=== PATIENT | male | born 1995 | race Caucasian/White ===

== ENCOUNTER 2017-06-15 09:35 | Emergency (ER) | payer OTHER ==
--- NOTE | 2017-06-15 10:28 | XRAY ---
Indication: Facial bruising/laceration following tire inflation injury. Multiple contiguous axial images obtained through the facial bones. Sagittal and coronal reformatted images obtained. Comparison: None Moderate left periorbital subcutaneous emphysema with smaller focus in the left jaw. No acute fracture, suspicious bony lesions, or radiopaque foreign body. Orbital globes are bilaterally symmetric. Orbits including roof, estrada, and floors intact. Posterior medial right maxillary sinus mucosal thickening. Remaining paranasal sinuses and nasal passages are clear. Remaining visualized noncontrasted soft tissues. CT head reported separately. Impression: 1. Left periorbital and left jaw subcutaneous emphysema. 2. Negative acute fracture or radiopaque foreign body. 3. Incidental right maxillary sinus disease. CT DI 59.47
--- NOTE | 2017-06-15 10:30 | XRAY ---
Indication: Facial bruising/laceration following tire inflation injury. Multiple contiguous axial images obtained through head without contrast. Comparison: None Ventriculosulcal pattern appears symmetric. No acute intracranial hemorrhage, abnormal extra-axial fluid collection, or mass effect. Fourth ventricle is midline without hydrocephalus. Dee-white matter differentiation preserved. Bony calvarium intact. Partially visualized right maxillary sinus mucosal thickening. Remaining visualized paranasal sinuses and mastoid air cells are clear. CT facial bones reported separately. Impression: 1. No acute intracranial abnormalities. 2. Right maxillary sinus disease. CT DI 52.34
--- NOTE | 2017-06-15 10:36 | ERPHSYRPT ---
- History of Present Illness Time Seen by Provider: 06/15/17 09:46 Source: patient, other Exam Limitations: no limitations Patient Subjective Stated Complaint: facial trauma from semi tire, pt face bruised, blood noted to lips, pt struggling to open Triage Nursing Assessment: pt to er with friend, was working on a semi tire when it came off striking the patient in the face, swelling and bruising noted to face, dried blood on lips, pt reporting he has difficulty hearing bilaterally but denies pain Physician History: airing a tire and it exploded injuring him on right face; no other injury or complaints except tinnitis and decreased hearing right ear; local pain right face and jaw; no loc; no neck or cp; no prior hx; no visual problems Occurred: this morning Where Injury Occurred: other Loss of Consciousness: no loss of consciousness Pain Location: right, face Severity of Pain-Max: severe Severity of Pain-Current: moderate Modifying Factors: Improves With: cold therapy Associated Symptoms: ringing in ears Allergies/Adverse Reactions: azithromycin Allergy (Verified 06/15/17 09:52) Hx Tetanus, Diphtheria Vaccination/Date Given: No Hx Influenza Vaccination/Date Given: No Hx Pneumococcal Vaccination/Date Given: No Immunizations Up to Date: No - Review of Systems Constitutional: No Symptoms Eyes: No Symptoms Ears, Nose, & Throat: Tinnitus, Epistaxis, Other (decreased hearing right ear) Respiratory: No Cough, No Dyspnea, No Wheezing Cardiac: No Chest Pain, No Palpitations, No Syncope Abdominal/Gastrointestinal: No Abdominal Pain, No Nausea, No Vomiting, No Diarrhea Genitourinary Symptoms: No Symptoms Musculoskeletal: Injury (tire blew up striking him in right face), No Back Pain , No Neck Pain, No Fall Skin: No Symptoms, No Rash Neurological: No Symptoms Psychological: No Symptoms Endocrine: No Symptoms Hematologic/Lymphatic: No Symptoms Immunological/Allergic: No Symptoms - Past Medical History Pertinent Past Medical History: No - Past Surgical History Past Surgical History: No - Social History Smoking Status: Never smoker Exposure to second hand smoke: No Alcohol Use: Socially Drug Use: none Patient Lives Alone: No Significant Family History: no pertinent family hx - Female History Hx Now: No Physical Exam - Nursing Vital Signs Nursing Vital Signs: Initial Vital Signs Pulse Rate 48 L 06/15/17 09:43 Respiratory Rate 18 06/15/17 09:43 Blood Pressure 135/88 06/15/17 09:43 O2 Sat by Pulse Oximetry 100 06/15/17 09:43 Pain Scale Pain Intensity 0 - [place] Coma Score Best Eye Response (López): (4) open spontaneously Best Verbal Response ([place]): (5) oriented Best Motor Response ([place]): (6) obeys commands [place] Total: 15 - Physical Exam General Appearance: moderate distress (pain right face and head), alert, thin Head Injury: contusions (right face), swelling (right face), tenderness (right face), No Gambino's Sign Eye Exam: bilateral eye: normal inspection, PERRL, EOMI, other (fundi benign; vision ok) ENT Exam: airway nml, decreased hearing (right only), clotted nasal blood (left only), No dental injury, No midface instability, No hemotympanum, No malocclusion Neck Exam: supple, trachea midline, full range of motion, normal alignment, normal inspection, No muscle spasm, No paraspinous muscle tender, No pain on movement of neck, No tenderness, No carotid bruit, No JVD, No lymphadenopathy Respiratory/Chest Exam: normal breath sounds, No chest tenderness, No respiratory distress, No ecchymosis, No crepitus Cardiovascular Exam: normal heart sounds, regular rate/rhythm, normal peripheral pulses, No murmur, No edema, No JVD Gastrointestinal Exam: soft, normal bowel sounds, No tenderness, No guarding, No rebound, No organomegaly Rectal Exam: deferred Back Exam: normal inspection, normal range of motion, No CVA tenderness, No vertebral tenderness, No muscle spasm Extremity Exam: normal inspection, normal range of motion, capillary refill <3 sec, pelvis stable, No bony point tenderness Peripheral Pulses: carotid (R): 4+, carotid (L): 4+, femoral (R): 4+, femoral (L ): 4+, dorsalis-pedis (R): 3+, dorsalis-pedis (L): 3+ Neurologic Exam: alert, oriented x 3, cooperative, packing attendant II-XII nml as tested, normal mood/affect, nml cerebellar function, nml station & gait, sensation nml Skin Exam: normal color, warm, dry, No rash SpO2 Interpretation: normal SpO2: 100 Oxygen Delivery: Room Air - Course Nursing assessment & vital signs reviewed: Yes - CT Exams Maxillofacial Bones CT Interpretation: Tele-radiologist Report, Other (no fracture or bony abnormality; some mild sub Q air left periorbital and left jaw) Head CT Interpretation: Negative (see facial bone cT resutls), Tele-radiologist Report Ordered Tests: Active Orders 24 hr Category Date Time Status Cold Application STAT Care 06/15/17 09:46 Active IV Insertion STAT Care 06/15/17 09:46 Active NPO (ED) STAT Care 06/15/17 09:46 Active Re-Check Vital Signs STAT Care 06/15/17 09:46 Active FACIAL BONES WO CONTRAST [CT] Stat Exams 06/15/17 09:47 Completed HEAD WITHOUT CONTRAST [CT] Stat Exams 06/15/17 09:47 Completed Medication Summary Discontinued Medications Generic Name Dose Route Start Last Admin Trade Name Lazaroq PRN Reason Stop Dose Admin Ibuprofen 600 mg 06/15/17 11:47 06/15/17 11:54 Motrin 600 Mg PO 06/15/17 11:48 600 mg STAT ONE Administration Ibuprofen Confirm 06/15/17 11:49 Motrin 600 Mg Administered 06/15/17 11:50 Dose 600 mg .ROUTE .STK-MED ONE - Progress Progress: improved (after CT), re-examined (after ct) Progress Note: 06/15/17 10:35 will appl,y ice; get CT and recheck; refused pain meds 06/15/17 12:03 motrin given; recheck psot CT ; initially slight light headed when up to bathroom; will monitor and recheck; friend at bedside; 06/15/17 12:15 rechecked and improved; no epistaxis now; TMs clear; hearing improving; tinnitus in right still present; no palpable crepitus face; FROM of jaw; instructions given; results reviewed; no work today; light tomorrow and RT if problems Counseled pt/family regarding: diagnosis, need for follow-up, rad results - Departure Time of Disposition: 12:16 Departure Disposition: Home Clinical Impression: Headache, post-traumatic, acute, Tinnitus of right ear, Concussion Condition: Stable Critical Care Time: Yes Critical Care Time(excluding separately billable procedures): 30-74 minutes Referrals: DOCTOR,NO FAMILY [Primary Care Provider] - Instructions: Contusion (DC), Concussion in Adults Additional Instructions: rest; ice; motirn; observe; no work today work tomorrow as tolerated; RT if problems Follow-up with family doctor as directed. Call for appointment. Return if any problems. If you smoke please stop. Call or follow up with your family doctor for assistance if you need it to stop. Please wear your seatbelt when driving. Have a nice day. Thank you for allowing us to participate in your care today. :o) Dr Salvatore Eckert
[2017-06-15 11:46] VITALS: BP 128/86; PULSE 55
[2017-06-15] MEDS ORDERED: MOTRIN 600 MG PO ONE (11:47)
[2017-06-15] MEDS ORDERED: MOTRIN 600 MG ONE (11:49)
[2017-06-15 12:02] VITALS: O2SAT 100
== END 2017-06-15 12:55 | disposition home or self-care (01) ==
LOC: ED 09:35
DX: G44.309 Post-traumatic headache, unspecified, not intractable (principal); H93.11 Tinnitus, right ear; R04.0 Epistaxis; S00.83XA Contusion of other part of head, initial encounter; S06.0X0A Concussion without loss of consciousness, initial encounter; W20.8XXA Other cause of strike by thrown, projected or falling object, initial encounter; Y93.89 Activity, other specified; Y92.9 Unspecified place or not applicable
CPT/HCPCS: 36000; 70450; 70486; 96360; 99284; A9270-GY